=== PATIENT | female | born 1990 | race Caucasian/White ===

== ENCOUNTER 2016-12-26 19:04 | Emergency (ER) | payer MEDICAID ==
[~2016-12-26] VITALS: Ht 162.6 cm; Wt 86.2 kg
[2016-12-26 19:28] VITALS: BP 111/52
--- NOTE | 2016-12-26 21:20 | NUR ---
PATIENT AMBULATED TO ER BED 8.
--- NOTE | 2016-12-26 21:27 | NUR ---
PT PRESENT TO ER WITH C/O LEFT ANKLE PAIN, S/P FALL AN HOUR AGO.
--- NOTE | 2016-12-26 21:40 | NUR ---
PATIENT BEING EVALUATED BY DR. SHEPARD.
[2016-12-26] MEDS ORDERED: IBUPROFEN 800 MG TAB PO ONE (21:45)
[2016-12-26 22:05] VITALS: BP 108/63
--- NOTE | 2016-12-26 22:05 | NUR ---
Patient discharged with v/s stable. Written and verbal after care instructions given and explained. Patient alert, oriented and verbalized understanding of instructions. Ambulatory with steady gait. All questions addressed prior to discharge. ID band removed. Patient advised to follow up with PMD. Rx of MOTRIN 800MG PO given. Patient educated on indication of medication including possible reaction and side effects. Opportunity to ask questions provided and answered.
== END 2016-12-26 22:05 | disposition home or self-care (01) ==
LOC: MED 19:04
DX: S93.492A Sprain of other ligament of left ankle, initial encounter (principal); J45.909 Unspecified asthma, uncomplicated; W17.89XA Other fall from one level to another, initial encounter; Y93.44 Activity, trampolining; Y92.830 Public park as the place of occurrence of the external cause; Y99.8 Other external cause status
CPT/HCPCS: 73610; 81002; 81025; 99284

== ENCOUNTER 2023-09-24 16:03 | Emergency (ER) | payer MEDICAID ==
[~2023-09-24] VITALS: Ht 162.6 cm; Wt 77.1 kg
[2023-09-24 16:21] VITALS: BP 148/101; PULSE 110; RESP 18; TEMP 96.5; O2SAT 99
[2023-09-24] MEDS: KETOROLAC 30 MG/ML VIAL IM ONE (16:48)
[2023-09-24] MEDS: ACETAMINOPHEN EXTRA STRENGTH 500 MG TAB PO ONE (16:49)
[2023-09-24] MEDS: MORPHINE SULFATE 4 MG/ML SYR IM ONE (17:13)
[2023-09-24] MEDS ORDERED: IBUP-2213 PO (18:29)
[2023-09-24] MEDS ORDERED: AMOX-1230 PO (18:29)
[2023-09-24] MEDS ORDERED: ACET-10509 PO (18:29)
== END 2023-09-24 18:42 | disposition home or self-care (01) ==
LOC: MED 16:03
DX: S51.851A Open bite of right forearm, initial encounter (principal); R45.1 Restlessness and agitation; J45.909 Unspecified asthma, uncomplicated; Z79.899 Other long term (current) drug therapy; W54.0XXA Bitten by dog, initial encounter; Y93.89 Activity, other specified; Y92.009 Unspecified place in unspecified non-institutional (private) residence as the place of occurrence of the external cause; Y99.8 Other external cause status
CPT/HCPCS: 73090; 96372; 99284; J1885; J2270

== ENCOUNTER 2024-01-25 01:31 | Emergency (ER) | payer MEDICAID ==
[~2024-01-25] VITALS: Ht 162.6 cm; Wt 74.8 kg
[~2024-01-25 01:31] MED LIST: ACET-10509 PO; AMOX-1230 PO; IBUP-2213 PO
[2024-01-25 01:59] VITALS: BP 118/80; PULSE 98; RESP 18; TEMP 97.3; O2SAT 99
[2024-01-25 03:36] VITALS: O2SAT 98
== END 2024-01-25 04:15 | disposition home or self-care (01) ==
LOC: MED 01:31
DX: T19.2XXA Foreign body in vulva and vagina, initial encounter (principal); J45.909 Unspecified asthma, uncomplicated; Z79.1 Long term (current) use of non-steroidal anti-inflammatories (NSAID); Z79.2 Long term (current) use of antibiotics; X58.XXXA Exposure to other specified factors, initial encounter; Y92.89 Other specified places as the place of occurrence of the external cause; Y93.89 Activity, other specified; Y99.8 Other external cause status
CPT/HCPCS: 99284